=== PATIENT | male | born 1985 | race Caucasian/White ===

== ENCOUNTER 2021-11-04 18:03 | Emergency (ER) | payer OTHER ==
--- OUTSIDE RECORDS SUMMARY | 2021-11-04 18:06 | XMS REPORT | Continuity of Care Document ---
:1985 Author Organization [facility] t Address [address] [place] [address] Care Team Providers Name Role Phone ZULETA, L Attending Clinician Unavailable GABRIELA DESAI Attending Clinician Unavailable Freddy HARDEN Admitting Clinician Unavailable Payers Payer Name Policy Type Policy Number Effective Date Expiration Date S ource Problems This patient has no known problems. Allergies, Adverse Reactions, Alerts This patient has no known allergies or adverse reactions. Medications This patient has no known medications. Procedures This patient has no known procedures. Encounters Start End Encounter Admission Attending Care Care Encounter Source Date/Time Date/Time Type Type Clinicians Facility Department ID 2021-06-27 Inpatient 1 ZULETA, [facility] [id number] [place] 22:29:00 [facility] 2021-06-27 2021-07-01 Inpatient ZULETA, [facility] [id number] [place] 22:29:00 11:55:00 [facility] 2021-07-01 2021-07-01 Inpatient [facility] [id number] [place] 02:17:52 05:39:30 [facility] 2021-06-30 2021-06-30 Inpatient ZULETA, [facility] [id number] [place] 19:05:43 20:03:10 [facility] 2021-06-30 2021-06-30 Inpatient [facility] [id number] [place] 02:11:18 04:56:54 [facility] 2021-06-29 2021-06-29 Inpatient [facility] [id number] [place] 02:07:57 04:22:40 [facility] 2021-06-28 2021-06-28 Inpatient [facility] [id number] [place] 05:52:27 06:22:02 Health 2021-06-27 2021-06-27 Emergency GABRIELA [facility] [id number] [place] 22:42:44 23:14:14 Alecia DESAI 2021-06-27 2021-06-27 Inpatient [facility] [id number] [place] 23:07:29 23:07:32 Health 2021-06-27 2021-06-27 Emergency [facility] [id number] [place] 22:35:04 22:44:06 Health Results Test Description Test Time Test Comments Results Result Comments Source SARS-CoV-2 RNA Resp Ql NIKOLAY+probe 2021-06-28 00:22:19 Test Item Value Reference Range Interpretation Comme nts Hospitalized? (test code = No 14589-9) ICU? (test code = 39732-0) No Symptomatic as defined by CDC? No (test code = 37163-2) Employed in Healthcare? (test Unknown code = 89139-7) Resident in a congregate care Unknown setting (including nursing homes, residential care for people with intellectual and developmental disabilities, psychiatric treatment facilities, group homes, board and care homes, homeless retirement, foster care or other): (test code = 07377-6) SARS-CoV-2 RNA Resp Ql NOT DETECTED Not Detected INTER PRETATION: No NIKOLAY+probe (test code = [place] [address]-8) SARS-CoV-2 Brittney navirus (COVID-19) were present in this patient's sample by this test. A no t detected result does not exclude the possibility of active infection with this virus due to other fa ctors that may affect the results such as a poorly col lected sample, viral t iters below the limit of de tection of the assay, and the infrequent poss ibility of inhibitors in t he sample. This result aamir uld be interpreted in conjunction with clinical, radiographic, a nd other laboratory find ings and should not be u sed as the sole indicator of active infection with SARS-CoV-2 Coronavirus ([place] VID-19). COMMENT: This roma real-time reverse transcriptase polymerase chain reaction (RT-PCR) test rapidly detects SARS-CoV-2 (COVID-19) virus from nasopharyngeal and nasal swab specimens. In accordance with the FDA's guidance document "Policy for Diagnostic Tests for Coronavirus Disease-2019 during the Public Health Emergency", this test was developed, and its performance characteristics were verified by the [facility] molecular diagnostics laboratory and is authorized for clinical diagnostic use. This laboratory is certified under the Clinical Laboratory Improvement Amendments (CLIA) as qualified to perform high complexity clinical laboratory testing.
[2021-11-04 18:42] LABS: Urine Blood 2+ (Negative); Urine Glucose Negative (Negative); Urine Protein Negative (Negative); Urine Specific Gravity 1.025 (1.005-1.030)
[2021-11-04 18:47] LABS: Absolute Lymphocytes (CBC) 1.2 K/uL (0.7-4.9); Hematocrit 44.5 % (39.6-49.0); Lymphocytes % 10.7 % (15.3-44.8); MPV 8.4 fL (7.6-11.3); RBC Red Blood Cell Count 5.31 M/uL (4.33-5.43)
[2021-11-04] MEDS ORDERED: KETOROLAC 30 MG/ML INJ ONE (18:59)
[2021-11-04 19:17] LABS: ALT/SGPT 24 U/L (12-78); AST/SGOT 18 U/L (15-37); Albumin 4.1 g/dL (3.4-5.0); Alkaline Phosphatase 84 U/L (45-117); BUN Blood Urea Nitrogen 20 mg/dL (7-18); Bicarbonate 27 mmol/L (21-32); Bilirubin Direct < 0.1 mg/dL (0-0.2); Bilirubin Total 0.4 mg/dL (0.2-1.0); Glucose Level 98 mg/dL (74-106); Lipase 45 U/L (73-393); Potassium 3.5 mmol/L (3.5-5.1); Protein, Total 7.7 g/dL (6.4-8.2); Sodium Level 139 mmol/L (136-145)
--- NOTE | 2021-11-04 19:49 | RAD REPORT ---
EXAM DESCRIPTION: CT - Stone Protocol - 11/04/2021 7:23 pm CLINICAL HISTORY: Abdominal pain. Hematuria COMPARISON: 2016 TECHNIQUE: Computed axial tomography of the abdomen pelvis was obtained without oral or IV contrast. Lack of IV and oral contrast limits evaluation of solid organs, bowel, and vessels. Coronal reformat debbie images were obtained and reviewed. All CT scans are performed using dose optimization technique as appropriate and may include automated exposure control or mA/KV adjustment according to patient size. FINDINGS: Multiple small bilateral renal calculi. Mild right hydronephrosis. No left hydronephrosis. Right ureter is dilated. 1 millimeter calculus right UVJ. The liver, spleen, pancreas and adrenals appear grossly normal Cholecystectomy. Small umbilical hernia There is no evidence of diverticulitis. The appendix appears normal IMPRESSION: 1 millimeter calculus right UVJ resulting in mild right hydronephrosis
--- NOTE | 2021-11-04 19:58 | ER ---
Nurse's Notes [facility] Name: Mayo Blackwell Age: 36 yrs Sex: Male : 1985 Arrival Date: 11/04/2021 Time: 18:06 Bed 26 Private MD: Diagnosis: Hydronephrosis with renal and ureteral calculous obstruction Presentation: 11/04 18:14 Chief complaint: Patient states: 36yo wm present with c/o pain to R upper and lower ss7 abdominal pain x 1 hour. Denies any n/v/d. +meth use in the last 6 hours. Ketamine 15mg given via ems. Pain from 9 to 2. Noted elevated bp in route. Pt denies any medical hx. 18G started in LAC via ems. Coronavirus screen: Vaccine status: Patient reports receiving the 1st dose of the Covid vaccine. Ebola Screen: No symptoms or risks identified at this time. Initial Sepsis Screen: Does the patient meet any 2 criteria? No. Patient's initial sepsis screen is negative. Does the patient have a suspected source of infection? No. Patient's initial sepsis screen is negative. Risk Assessment: Do you want to hurt yourself or someone else? Patient reports no desire to harm self or others. Onset of symptoms was November 04, 2021 at 17:00. Care prior to arrival: Medication(s) given: Ketamine IV initiated. 18 GA, in the left antecubital area. 18:14 Method Of Arrival: EMS ss7 18:14 Acuity: BRIANA 3 ss7 Triage Assessment: 18:17 General: Appears uncomfortable, Behavior is anxious, diaphoretic. Pain: Complains of ss7 pain in abdomen. EENT: No deficits noted. Neuro: No deficits noted. Cardiovascular: Heart tones S1 S2. Respiratory: No deficits noted. Breath sounds are clear bilaterally. GI: Abdomen is flat, Bowel sounds present X 4 quads. Abd is soft Abdomen is tender to palpation Abdomen has rebound tenderness in right lower quadrant Reports lower abdominal pain, upper abdominal pain. : No deficits noted. Derm: No deficits noted. Musculoskeletal: No deficits noted. Historical: - Allergies: 18:17 No Known Allergies; ss7 - Home Meds: 18:17 None [Active]; ss7 - PMHx: 18:17 Kidney stones; PTSD; ss7 - PSHx: 18:17 Cholecystectomy; ss7 - Immunization history:: Adult Immunizations not up to date. - Social history:: Smoking status: Patient reports the use of cigarette tobacco products, Patient uses street drugs, Methamphetamine (Meth). Screenin:19 Abuse screen: Denies threats or abuse. Nutritional screening: No deficits noted. ss7 Tuberculosis screening: No symptoms or risk factors identified. Fall Risk IV access (20 points). Assessment: 18:19 General: see triage. 7 Vital Signs: 18:14 BP 158 / 104; Pulse 64; Resp 18; Temp 98.6; Pulse Ox 98% on R/A; Weight 58.97 kg; 7 Height 5 ft. 4 in. (162.56 cm); 19:00 BP 130 / 92; Pulse 97; Resp 18; Pulse Ox 98% on R/A; ss7 18:14 Body Mass Index 22.31 (58.97 kg, 162.56 cm) 7 ED Course: 18:06 Patient arrived in ED. em1 18:17 Triage completed. 7 18:17 Arm band placed on left wrist. 7 18:19 Patient has correct armband on for positive identification. Bed in low position. Call [facility] branson light in reach. 18:20 Inserted saline lock: 18 gauge in left antecubital area, using aseptic technique. per 7 ems. 18:20 No provider procedures requiring assistance completed. ss7 18:29 Lavelle Tsang PA is PHCP. jr8 18:29 Devon Trivedi MD is Attending Physician. jr8 18:34 Basic Metabolic Panel Sent. ss7 18:34 CBC with Diff Sent. ss7 18:34 Hepatic Function Sent. ss7 18:34 Lipase Sent. ss7 18:34 Basic Metabolic Panel Sent. ss7 19:23 CT Stone Protocol In Process Unspecified. EDMS 19:57 Eamon Bernstein MD is Referral Physician. jr8 20:13 IV discontinued, intact. 7 Administered Medications: 18:59 Drug: Ketorolac 15 mg Route: IVP; Site: left antecubital; lr4 Outcome: 19:00 Discharged to home ambulatory. 7 19:00 Condition: good 19:00 Discharge instructions given to patient. 19:58 Discharge ordered by . jr8 20:26 Patient left the ED. 7 Signatures: Dispatcher [employer] EDJose Marina em1 Lavelle Tsang PA PA jr8 Maxine Kaur, RN RN ss7 Ashlyn Zeng RN RN lr4 Corrections: (The following items were deleted from the chart) 18:35 18:14 BP 158 / 104; Pulse 64bpm; Resp 18bpm; Pulse Ox 98% RA; ss7 ss7
--- NOTE | 2021-11-04 19:58 | EDPHYS ---
Physician Documentation [facility] Name: Mayo Blackwell Age: 36 yrs Sex: Male : 1985 Arrival Date: 11/04/2021 Time: 18:06 Bed 26 Private MD: ED Physician Devon Trivedi HPI: 11/04 18:51 This 36 yrs old Male presents to ER via EMS with complaints of Flank Pain. jr8 18:51 The patient complains of pain in the right flank. Onset: The symptoms/episode jr8 began/occurred acutely, today. Associated signs and symptoms: The patient has no apparent associated signs or symptoms. Severity of pain: At its worst the pain was moderate in the emergency department the pain is unchanged. It is unknown whether or not the patient has had similar symptoms in the past. The patient has not recently seen a physician. Historical: - Allergies: 18:17 No Known Allergies; ss7 - Home Meds: 18:17 None [Active]; ss7 - PMHx: 18:17 Kidney stones; PTSD; ss7 - PSHx: 18:17 Cholecystectomy; ss7 - Immunization history:: Adult Immunizations not up to date. - Social history:: Smoking status: Patient reports the use of cigarette tobacco products, Patient uses street drugs, Methamphetamine (Meth). ROS: 18:51 Eyes: Negative for injury, pain, redness, and discharge, ENT: Negative for injury, jr8 pain, and discharge, Neck: Negative for injury, pain, and swelling, Cardiovascular: Negative for chest pain, palpitations, and edema, Respiratory: Negative for shortness of breath, cough, wheezing, and pleuritic chest pain, Abdomen/GI: Negative for abdominal pain, nausea, vomiting, diarrhea, and constipation, MS/Extremity: Negative for injury and deformity, Skin: Negative for injury, rash, and discoloration, Neuro: Negative for headache, weakness, numbness, tingling, and seizure. 18:51 Back: Positive for flank pain, on the right. Exam: 18:51 Cardiovascular: Regular rate and rhythm with a normal S1 and S2. No gallops, murmurs, jr8 or rubs. Normal PMI, no JVD. No pulse deficits. Respiratory: Lungs have equal breath sounds bilaterally, clear to auscultation and percussion. No rales, rhonchi or wheezes noted. No increased work of breathing, no retractions or nasal flaring. Abdomen/GI: Soft, non-tender, with normal bowel sounds. No distension or tympany. No guarding or rebound. No evidence of tenderness throughout. Skin: Warm, dry with normal turgor. Normal color with no rashes, no lesions, and no evidence of cellulitis. MS/ Extremity: Pulses equal, no cyanosis. Neurovascular intact. Full, normal range of motion. Neuro: Awake and alert, GCS 15, oriented to person, place, time, and situation. Cranial nerves II-XII grossly intact. Motor strength 5/5 in all extremities. Sensory grossly intact. 18:51 Constitutional: This is a well developed, well nourished patient who is awake, alert, and in no acute distress. Neck: Trachea midline, no thyromegaly or masses palpated, and no cervical lymphadenopathy. Supple, full range of motion without nuchal rigidity, or vertebral point tenderness. No Meningismus. 18:51 Back: pain, that is mild, of the right flank, ROM is normal, CVA tenderness, is absent, muscle spasm, is not present. Vital Signs: 18:14 BP 158 / 104; Pulse 64; Resp 18; Temp 98.6; Pulse Ox 98% on R/A; Weight 58.97 kg; ss7 Height 5 ft. 4 in. (162.56 cm); 19:00 BP 130 / 92; Pulse 97; Resp 18; Pulse Ox 98% on R/A; ss7 18:14 Body Mass Index 22.31 (58.97 kg, 162.56 cm) [facility] MDM: 18:37 Patient medically screened. [facility] 19:57 Data reviewed: vital signs, nurses notes, lab test result(s), radiologic studies, CT 8 scan. Data interpreted: Pulse oximetry: on room air is 98 %. Interpretation: normal. Counseling: I had a detailed discussion with the patient and/or guardian regarding: the historical points, exam findings, and any diagnostic results supporting the discharge/admit diagnosis, lab results, radiology results, the need for outpatient follow up, a urologist, to return to the emergency department if symptoms worsen or persist or if there are any questions or concerns that arise at home. Response to treatment: the patient's symptoms have markedly improved after treatment. 11/04 18:30 Order name: Basic Metabolic Panel 8 11/04 18:30 Order name: CBC with Diff; Complete Time: 18:53 jr8 11/04 18:30 Order name: Hepatic Function; Complete Time: 19:19 jr8 11/04 18:30 Order name: Lipase; Complete Time: 19:19 jr8 11/04 18:31 Order name: Basic Metabolic Panel; Complete Time: 19:19 EDMS 11/04 18:42 Order name: Urine Dipstick-Ancillary; Complete Time: 18:43 EDMT 11/04 18:30 Order name: IV Saline Lock; Complete Time: 18:34 jr8 11/04 18:30 Order name: Labs collected and sent; Complete Time: 18:34 8 11/04 18:42 Order name: Urine Dipstick-Ancillary (obtain specimen); Complete Time: 18:51 jr8 11/04 18:44 Order name: CT Stone Protocol; Complete Time: 19:56 jr Administered Medications: 18:59 Drug: Ketorolac 15 mg Route: IVP; Site: left antecubital; lr4 Disposition Summary: 11/04/21 19:58 Discharge Ordered Location: Home jr8 Problem: new jr8 Symptoms: have improved jr8 Condition: Stable jr8 Diagnosis - Hydronephrosis with renal and ureteral calculous obstruction jr8 Followup: jr8 - With: Eamon Bernstein MD - When: 1 week - Reason: Recheck today's complaints, Continuance of care, Re-evaluation by your physician Discharge Instructions: - Discharge Summary Sheet jr8 - Kidney Stones jr8 - Hydronephrosis jr8 Forms: - Medication Reconciliation Form jr8 - Thank You Letter jr8 - Antibiotic Education jr8 - Prescription Opioid Use jr8 Prescriptions: - tamsulosin 0.4 mg Oral capsule - take 1 capsule by ORAL route At bedtime; 10 capsule; Refills: 0, Product jr8 Selection Permitted - Ibuprofen 800 mg Oral Tablet - take 1 tablet by ORAL route every 12 hours As needed take with food; 20 tablet; jr8 Refills: 0, Product Selection Permitted - Zofran 4 mg Oral Tablet - take 1 tablet by ORAL route every 12 hours As needed; 20 tablet; Refills: 0, jr8 Product Selection Permitted Addendum: 11/07/2021 23:14 Co-signature as Attending Physician, Devon Trivedi MD I agree with the assessment and r n plan of care. Attestation: The patient's history, exam findings, diagnostics, and a summary of any interventions or procedures was reviewed in detail with Lavelle DOYLE. Signatures: Dispatcher [employer] Devon Jones MD MD rn Roszak, Josh, PA PA jr8 Maxine Kaur RN RN ss7 Ashlyn Zeng RN RN lr4 Corrections: (The following items were deleted from the chart) 11/04 18:56 18:45 Stone Protocol+CT.RAD.BRZ ordered. DILIA DOBBS
[2021-11-04 20:41] VITALS: TEMP 98.6; O2SAT 98
[2021-11-04 20:43] VITALS: BP 130/92
== END 2021-11-04 20:26 | disposition home or self-care (01) ==
LOC: ER 18:03
DX: N13.2 Hydronephrosis with renal and ureteral calculous obstruction (principal); Z87.442 Personal history of urinary calculi
CPT/HCPCS: 36415; 74176; 76377; 80048; 80076; 81003; 83690; 85025; 96374; 99284

== ENCOUNTER 2021-11-15 03:40 | Emergency (ER) | payer OTHER ==
--- OUTSIDE RECORDS SUMMARY | 2021-11-15 03:44 | XMS REPORT | Continuity of Care Document ---
:1985 Author Organization [facility] t Address [address] [place] [address] Care Team Providers Name Role Phone ZULETA, [...] Facility Department ID 2021-06-27 Inpatient 1 ZULETA, [facility] [id number] [place] 22:29:00 [facility] 2021-06-27 2021-07-01 Inpatient ZULETA, [facility] [id number] [place] 22:29:00 11:55:00 [facility] 2021-07-01 2021-07-01 Inpatient [facility] [id number] [place] 02:17:52 05:39:30 [facility] 2021-06-30 2021-06-30 Inpatient ZULETA, [facility] [id number] [place] 19:05:43 20:03:10 [facility] 2021-06-30 2021-06-30 Inpatient [facility] [id number] [place] 02:11:18 04:56:54 [facility] 2021-06-29 2021-06-29 Inpatient [facility] [id number] [place] 02:07:57 04:22:40 [facility] 2021-06-28 2021-06-28 Inpatient [facility] [id number] [place] 05:52:27 06:22:02 Health 2021-06-27 2021-06-27 Emergency GABRIELA [facility] [id number] [place] 22:42:44 23:14:14 Alecia DESAI 2021-06-27 2021-06-27 Inpatient [facility] [id number] [place] 23:07:29 23:07:32 Health 2021-06-27 2021-06-27 Emergency [facility] [id number] [place] 22:35:04 22:44:06 Health Results Test Description Test Time Test Comments Results Result Comments Source SARS-CoV-2 RNA Resp Ql NIKOLAY+probe 2021-06-28 00:22:19 Test Item Value Reference Range Interpretation Comme nts Hospitalized? (test code = No 04820-1) ICU? (test code = 97628-2) No Symptomatic as defined by CDC? No (test code = 10151-2) Employed in Healthcare? (test Unknown code = 03746-3) Resident in a congregate care Unknown setting (including nursing homes, residential care for people with intellectual and developmental disabilities, psychiatric treatment facilities, group homes, board and care homes, homeless residential, foster care or other): (test code = 01469-2) SARS-CoV-2 RNA Resp Ql NOT DETECTED Not Detected INTER PRETATION: No NIKOLAY+probe (test [place] = [place] [address]-0) SARS-CoV-2 Brittney navirus (COVID-19) were present in [...] its performance characteristics were verified by the [facility] molecular diagnostics laboratory and is authorized for clinical diagnostic use. This laboratory is certified under the Clinical Laboratory Improvement Amendments (CLIA) as qualified to perform high complexity clinical laboratory testing.
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
--- NOTE | 2021-11-15 03:59 | ER ---
Nurse's Notes [facility] Name: Mayo Blackwell Age: 36 yrs Sex: Male : 1985 Arrival Date: 11/15/2021 Time: 03:45 Bed 19 Private MD: Diagnosis: Adverse effect of amphetamines, initial encounter Presentation: 11/15 03:56 Chief complaint: Patient states: used meth today. thought his phone was leaking acid sm5 onto his arms and hands and got into his eye. Coronavirus screen: Vaccine status: Patient reports receiving the 1st dose of the Covid vaccine. Ebola Screen: No symptoms or risks identified at this time. Initial Sepsis Screen: Does the patient meet any 2 criteria? No. Patient's initial sepsis screen is negative. Does the patient have a suspected source of infection? No. Patient's initial sepsis screen is negative. Risk Assessment: Do you want to hurt yourself or someone else? Patient reports no desire to harm self or others. Onset of symptoms was November 15, 2021. 03:56 Method Of Arrival: Ambulatory [facility] 03:56 Acuity: BRIANA 4 5 Triage Assessment: 03:57 General: Appears in no apparent distress. Behavior is cooperative, anxious. Pain: sm5 Denies pain. Neuro: No deficits noted. Level of Consciousness is awake, alert, obeys commands, Oriented to person, place, time, situation. Cardiovascular: Capillary refill < 3 seconds Patient's skin is warm and dry. Respiratory: Airway is patent Trachea midline Respiratory effort is even, unlabored. Injury Description: none. Historical: - Allergies: 03:58 No Known Allergies; sm5 - PMHx: 03:58 Kidney stones; PTSD; sm5 - PSHx: 03:58 Cholecystectomy; sm5 - Immunization history:: Client reports receiving the 1st dose of the Covid vaccine. - Social history:: Smoking status: Patient reports the use of cigarette tobacco products, smokes one pack cigarettes per day. Patient uses street drugs, Methamphetamine (Meth). - Family history:: not pertinent. - Hospitalizations: : No recent hospitalization is reported. Assessment: 03:58 Reassessment: The pt was easily reoriented to reality and acknowledged that he was candice previously in and will return. The pt is pleasant and cooperative. He reports he "does meth...yes, today, too...". Vital Signs: 03:56 BP 167 / 109; Pulse 97; Resp 20; Temp 97.2(O); Pulse Ox 100% on R/A; Weight 68.04 kg; [facility] Height 5 ft. 4 in. (162.56 cm); Pain 0/10; 04:00 BP 143 / 106; Pulse 97; Resp 18; Temp 98.7; Pulse Ox 100% on R/A; [facility] 03:56 Body Mass Index 25.75 (68.04 kg, 162.56 cm) [facility] ED Course: 03:45 Patient arrived in ED. 03:49 Devon Trivedi MD is Attending Physician. rn 03:57 Triage completed. [facility] 03:58 Arm band placed on right wrist. [facility] 04:04 Hui Briseno, RN is Primary Nurse. [facility] Administered Medications: No medications were administered Outcome: 03:59 Discharge ordered by . rn 04:04 Patient left the ED. [facility] Signatures: Devon Trivedi MD MD rn Marsh, Wendy Starr Douglas RN RN [facility] Hui Briseno RN RN bo
[2021-11-15 04:23] VITALS: O2SAT 100
[2021-11-15 04:24] VITALS: BP 143/106; TEMP 98.7
== END 2021-11-15 04:04 | disposition home or self-care (01) ==
LOC: ER 03:40
DX: L29.9 Pruritus, unspecified (principal); T43.625A Adverse effect of amphetamines, initial encounter; F17.210 Nicotine dependence, cigarettes, uncomplicated
CPT/HCPCS: 99281